=== PATIENT | female | born 1965 | race Caucasian/White ===

== ENCOUNTER → 2024-02-01 | Outpatient (CLI) | payer BC ==
--- NOTE | 2024-02-02 10:11 | CA ---
Transthoracic Echo Report Name: Chari Carroll Age: 58 Gender: F : 1965 Exam Date: 02/01/2024 16:37 Exam Location: [facility] Ht (in): 66 Wt (lb): 218 Ordering Physician: Maximino Stevenson DO Attending/Referring Phys: Radha Contreras PAC Pin Sticker Rea Marshall RDCS Procedure CPT: Indications: R01.1 CARDIAC MURMUR I10 HTN Cardiac Hx: Technical Quality: Fair Contrast 1: Total Dose (mL): Contrast 2: Total Dose (mL): MEASUREMENTS (Male / Female) Normal Values 2D ECHO LV Diastolic Diameter PLAX 4.7 cm 4.2 - 5.9 / 3.9 - 5.3 cm LV Systolic Diameter PLAX 2.8 cm IVS Diastolic Thickness 1.2 cm 0.6 - 1.0 / 0.6 - 0.9 cm LVPW Diastolic Thickness 1.3 cm 0.6 - 1.0 / 0.6 - 0.9 cm LV Relative Wall Thickness 0.5 LA Volume 56.6 cm??? 18 - 58 / 22 - 52 cm??? LA Volume Index 25.9 cm???/m??? 16 - 28 cm???/m??? M-MODE Aortic Root Diameter MM 3.1 cm LA Systolic Diameter MM 5.1 cm LA Ao Ratio MM 1.6 AV Cusp Separation MM 1.9 cm DOPPLER AV Peak Velocity 177.9 cm/s AV Peak Gradient 12.7 mmHg AV Mean Velocity 118.6 cm/s AV Mean Gradient 6.7 mmHg AV Velocity Time Integral 39.7 cm LVOT Peak Velocity 166.3 cm/s LVOT Peak Gradient 11.1 mmHg LVOT Velocity Time Integral 43.0 cm MV Area PHT 3.4 cm??? Mitral E Point Velocity 117.5 cm/s Mitral A Point Velocity 101.4 cm/s Mitral E to A Ratio 1.2 MV Deceleration Time 222.7 ms MV E' Velocity 10.6 cm/s Mitral E to MV E' Ratio 11.1 FINDINGS Left Ventricle Mildly increased left ventricular wall thickness. Left ventricular cavity size normal. Normal left ventricular systolic function with no obvious regional wall motion abnormalities. Left ventricular ejection fraction is estimated at 55-60 %. Grade 1 diastolic dysfunction. Right Ventricle Normal right ventricular size and function. Right ventricular systolic pressure within normal limits. Right Atrium Normal right atrial size. Left Atrium Mildly increased left atrial volume. Mitral Valve Structurally normal mitral valve. No mitral stenosis. Mild to moderate mitral regurgitation. Aortic Valve Trileaflet aortic valve. No aortic valve stenosis or regurgitation. Tricuspid Valve Structurally normal tricuspid valve. Mild tricuspid regurgitation. Pulmonic Valve Structurally normal pulmonic valve. Trace pulmonic regurgitation. Pericardium No pericardial effusion. Aorta Normal size aortic root and proximal ascending aorta. CONCLUSIONS Normal LV systolic function Mild to moderate mitral regurgitation Technically difficult study for interpretation Previewed by: Dr. Roman Holman MD (Electronically Signed) Final Date: 02 February 2024 10:10
== END | disposition home or self-care (01) ==
LOC: RADECHMAIN 16:33
PROVIDERS: ATTEND Family Medicine
DX: R01.1 Cardiac murmur, unspecified (principal); I34.0 Nonrheumatic mitral (valve) insufficiency; I10 Essential (primary) hypertension
CPT/HCPCS: 93306

== ENCOUNTER → 2024-05-15 | Outpatient (CLI) | payer BC ==
[2024-05-15 18:00] LABS: African American GFR (CKD) 85 (>60 ml/min/1.73 sqM); Blood Urea Nitrogen 18 mg/dL (7-17); Non-African American GFR(CKD) 74 (>60 ml/min/1.73 sqM)
--- NOTE | 2024-05-15 22:22 | CT ---
EXAMINATION TYPE: CT soft tissue neck w con DATE OF EXAM: 05/15/2024 COMPARISON: None HISTORY: left side selling CT DLP: 698.1 mGycm CONTRAST: Patient injected with 100ml mL of Isovue 300. TECHNIQUE: Axial images at 3 mm thick sections. Reconstructed images in the coronal plane and sagitt al plane are reviewed. FINDINGS: Limited CT sections are obtained the lung apices. The lung apices appear clear. CT neck: The torus tubarius and fossa of Rosenmuller are normal. Site Auditor spaces are normal. Para nasal sinuses and mastoid air cells are clear. Parotid glands appear normal and symmetrical. Submandibular glands, are normal. Parapharyngeal spac es are normal. No suspicious adenopathy is evident. There are scattered small shotty lymph nodes pre sent. This includes posterior triangle, submandibular and jugulodigastric left infraparotid largest p resent appears to be within the posterior left parotid gland measuring 0.8 cm. The hypopharynx appears within normal limits. Vocal cord level appear symmetrical. Thyroid is not visualized and may be surgically absent Osseous structures are normal. IMPRESSION: 1. No suspicious enlarged lymphadenopathy. There are multiple scattered small lymph nodes present [facility], Workstation: [facility], 05/15/2024 10:20 PM
== END | disposition home or self-care (01) ==
LOC: RADCTMAIN 17:21
PROVIDERS: ATTEND Family Medicine
DX: L04.0 Acute lymphadenitis of face, head and neck
CPT/HCPCS: 36415; 70491; 82565; 84520

== ENCOUNTER → 2025-03-14 | Outpatient (CLI) | payer BC ==
--- NOTE | 2025-03-15 10:35 | MM ---
Reason for Exam: Screening (asymptomatic). Last mammogram was performed 13 year(s) and 7 month(s) ago. Patient History: Menarche at age 15. Patient has no children. Left ovary removed at age 45. Right ovary removed at age 45. Hysterectomy at age 45. Postmenopausal. Patient used Hormonal Contraceptives for 10 years. 09/08/2011, Benign Core Biopsy on the left side. 09/08/2011, Benign Cyst Aspiration on the left side. Risk Values: Trinidad 5 year model risk: 1.7%. NCI Lifetime model risk: 8.9%. Prior Study Comparison: 08/13/2011 Bilateral Screening Mammogram, [facility]. 08/26/2011 Left Diagnostic Mammogram, [facility]. Tissue Density: There are scattered areas of fibroglandular density. Findings: Analyzed By CAD. Areas of asymmetric density such as superior left MLO view show no persisting abnormality on 3-D images. Microclip left breast from prior biopsy. No significant mass, suspicious microcalcification, or other discrete abnormalities seen. Overall Assessment: Benign, BI-RAD 2 Management: Screening Mammogram of both breasts in 1 year. Patient should continue monthly self-breast exams. A clinical breast exam by your physician is recommended on an annual basis. This exam should not preclude additional follow-up of suspicious palpable abnormalities. Note on Trinidad scores and lifetime risk: 1. A Trinidad score greater than 3% is considered moderate risk. If this is the case, consider specialist referral to assess eligibility for a risk reducing agent. 2. If overall lifetime risk for the development of breast cancer is 20% or higher, the patient may qualify for future screening with alternating mammogram and breast MRI. [facility], , 03/15/2025 10:21 AM. Electronically signed and approved by: Yessenia Head M.D. Radiologist
== END | disposition home or self-care (01) ==
LOC: RADMAMWWP 10:37
PROVIDERS: ATTEND Family Medicine
DX: Z12.31 Encounter for screening mammogram for malignant neoplasm of breast (principal); R92.323 Mammographic fibroglandular density, bilateral breasts; Z78.0 Asymptomatic menopausal state; Z92.0 Personal history of contraception
CPT/HCPCS: 77063; 77067